=== PATIENT | male | born 1980 | race Caucasian/White ===

== ENCOUNTER 2020-02-28 23:28 | Observation (INO) | payer OTHER, SELFPAY ==
[2020-02-29] VITALS (19 sets, daily range): BP systolic 104–144; BP diastolic 50–88; PULSE 67–100; RESP 9–18; TEMP 36.5–37.4; O2SAT 95–100; BMI 26.4; BMI 25.2
--- NOTE | 2020-02-29 00:09 | ED_ITS ---
HPI - Abdominal Pain General Chief Complaint: Urogenital-Male Stated Complaint: Hernia left side - states it is out, pain Time Seen by Provider: 02/28/20 23:32 Source: patient Mode of arrival: Ambulatory Limitations: no limitations History of Present Illness HPI narrative: 39-year-old male smoker with history of known left inguinal hernia presents with severe left groin pain and significant swelling in scrotum. He denies any injury. He has had no fever chills and is nauseated but denies vomiting. He states it is never been quite this swollen he can usually get it back in, he states it has been out about 15-16 hours. He still passing gas but developing increasing pain across his lower abdomen. He last ate at 7:00 p.m. tonight. He denies any previous abdominal surgeries. He was diagnosed with inguinal hernia 2 years ago while in [place]. He has had no runny nose, sore throat, cough or shortness of breath and no known exposure to persons with COVID-19 MD complaint: abdominal pain Onset (ago): hour(s) Pain Consistency: constant Location: LLQ and suprapubic Severity: severe Quality: cramping and aching Radiation: none Relieving factors: rest Exacerbating factors: movement Associated symptoms: nausea Related Data Home Medications Medication Instructions Recorded Confirmed No Known Home Medications 02/29/20 02/29/20 Allergies Allergy/AdvReac Type Severity Reaction Status Date / Time No Known Drug Allergies Allergy Verified 02/29/20 00:12 Review of Systems Constitutional Constitutional: Denies chills, Denies fatigue, Denies fever(s), Denies frequent falls, Denies lethargy and Denies weakness Eyes Eyes: Denies change in vision, Denies eye discharge, Denies irritation and Denies loss of vision ENT Ears, Nose, Mouth, and Throat: Denies change in voice, Denies dizziness, Denies neck pain, Denies sore throat and Denies throat swelling Cardiovascular Cardiovascular: Denies chest pain, Denies irregular heart rhythm, Denies lightheadedness, Denies palpitations, Denies dyspnea, Denies dyspnea on exertion and Denies orthopnea Respiratory Respiratory: Denies cough, Denies dyspnea, Denies dyspnea on exertion and Denies wheezing Gastrointestinal Gastrointestinal: Denies abdominal pain, Denies change in bowel habits, Denies d iarrhea, Denies nausea and Denies vomiting Genitourinary Genitourinary: Denies hematuria, Denies flank pain, Denies urinary incontinence and Denies urinary urgency Musculoskeletal Musculoskeletal: Denies back pain, Denies muscle weakness, Denies neck pain, Denies numbness and Denies tingling Integumentary/Breasts Skin/Breast: Denies pruritus, Denies erythema, Denies rash and Denies wounds Neurologic Neurologic: Denies behavioral changes, Denies confusion, Denies dizziness, Denies frequent falls, Denies loss of vision, Denies numbness, Denies tingling and Denies weakness Psychiatric Psychiatric: Denies anxiety, Denies behavioral changes, Denies confusion, Denies depression, Denies homicidal ideation and Denies suicidal ideation Endocrine Endocrine: Denies fatigue, Denies flushing and Denies palpitations Hematologic/Lymphatic Hematologic/Lymphatic: Denies easy bruising Allergic/Immunologic Allergic/Immunologic: Denies urticaria, Denies throat swelling and Denies wheezing Patient History Surgical History Hx of tonsillectomy (Acute) Social History Smoking Status: Current every day smoker Exam Narrative Exam Narrative: GENERAL: [39] year old patient appears stated age. Well- nourished, well-developed patient, in moderate distress, obviously in pain and uncomfortable HEAD: Atraumatic. Normocephalic. EYES: Pupils equal round and reactive. Extraocular motions intact. No scleral icterus. No injection or drainage. ENT: Nose without bleeding, purulent drainage. Throat without erythema, tonsillar hypertrophy or exudate. Airway patent. NECK: Trachea midline. Non tender CARDIOVASCULAR: Regular rate and rhythm without murmurs, gallops, or rubs. RESPIRATORY: Clear to auscultation. Breath sounds equal bilaterally. No wheezes, rales, or rhonchi. GASTROINTESTINAL: Abdomen soft, non-tender, nondistended. : Large tender mass in L inguinal region extending into scrotum consistent with inguinal hernia. Non-reduceable. No erythema, or warmth. EXTREMITIES: No edema or joint tenderness. BACK: Nontender without deformity or crepitance. No flank tenderness. NEURO: AOx3. SKIN: No rash or erythema of visible areas Initial Vital Signs Initial Vital Signs: Vital Signs Temperature 99.3 F 02/29/20 00:09 Pulse Rate 90 02/29/20 00:09 Respiratory Rate 18 02/29/20 00:09 Blood Pressure 144/88 H 02/29/20 00:09 Pulse Oximetry 100 02/29/20 00:09 Course Course Course Narrative: patient given Versed 2mg IV and attempt to reduce hernia is unsuccesful. Patient placed in trendelenburg, tolerated well. Call to adjuster [facility] (Dr. Contreras) whom will see patient at bedside and requests surgical crew called in. Orders Ordered: ED Orders 02/29/20 00:35 Basic Metabolic Panel Stat Complete Blood Count AUTO DIFF Stat Lactate (Lactic Acid) Stat 02/29/20 00:57 XR acute abdomen series Stat Fentanyl (Sublimaze) 0 mcg IV Q5M PRN PRN Reason: Pain, Moderate (4-6) Hydromorphone HCl (Dilaudid) 0 mg IV Q5M PRN PRN Reason: Pain, Severe (7-10) Sodium Chloride (Normal Saline 0.9%) 1,000 mls @ 125 mls/hr IV CONT JERICA Last Admin: 02/29/20 01:56 Dose: 125 mls/hr Documented by: ANDREW Lactated Ringer's (Lactated Ringers) 1,000 mls @ 42 mls/hr IV CONT JERICA Last Admin: 02/29/20 02:26 Dose: 42 mls/hr Documented by: LUZMARIA Metoclopramide HCl (Reglan) 10 mg IV NOW PRN PRN Reason: Nausea And Vomiting Ondansetron HCl (Zofran) 4 mg IV NOW PRN PRN Reason: Nausea And Vomiting Oxycodone/Acetaminophen (Percocet 5/325) 1 tab PO PACUNOW PRN PRN Reason: Mild or Moderate Pain Discontinued Medications Bupivacaine HCl (Sensorcaine 0.25% (Pf)) 30 ml INJ NOW ONE Stop: 02/29/20 02:47 Last Admin: 02/29/20 02:46 Dose: 30 ml Documented by: MARTIN Sodium Chloride (Normal Saline 0.9%) 1,000 mls @ 1,000 mls/hr IV BOLUS ONE Stop: 02/29/20 01:13 Last Infusion: 02/29/20 01:56 Dose: 0 mls/hr Documented by: Admin: 02/29/20 00:38 Dose: 1,000 mls/hr Documented by: ANDREW Piperacillin/Tazobactam/Dextrose (Zosyn) 3.375 gm in 50 mls @ 100 mls/hr IV NOW ONE Stop: 02/29/20 02:18 Last Infusion: 02/29/20 02:25 Dose: 0 mls/hr Documented by: Admin: 02/29/20 01:56 Dose: 100 mls/hr Documented by: ANDREW Midazolam HCl (Versed) 1 mg IV NOW ONE Stop: 02/29/20 00:21 Last Admin: 02/29/20 00:41 Dose: 1 mg Documented by: ANDREW Midazolam HCl (Versed) 1 mg IV NOW ONE Stop: 02/29/20 01:00 Vital Signs Vital signs: Vital Signs - 8 hr 02/29/20 00:09 02/29/20 01:02 Temperature 99.3 F Pulse Rate 90 96 H Respiratory Rate 18 16 Blood Pressure 144/88 H Blood Pressure [Left Arm] 131/83 Pulse Oximetry 100 98 MDM - Abdominal Pain Lab Data Result diagrams: 02/29/20 00:35 02/29/20 00:35 Labs: Lab Results 02/29/20 02/29/20 02/29/20 Range/Units 00:35 00:35 00:35 WBC 7.3 (4.5-11.0) X10^3/uL RBC 4.64 (4.5-5.9) X10^6/uL Hgb 13.4 L (13.5-17.5) g/dL Hct 38.5 L (41-53) % MCV 82.9 (80-100) fL MCH 29.0 (26-34) PG MCHC 34.9 (30-36) % RDW 12.8 (11.6-14.8) % Plt Count 198 (150-400) X10^3/uL Neut % (Auto) 63.0 (50-75) % Lymph % (Auto) 19.2 L (25-40) % [place] % (Auto) 14.4 H (3-14) % Eos % (Auto) 2.9 (2-4) % Baso % (Auto) 0.5 (0-2) % Neut # (Auto) 4600 (3391-6291) /uL Lymph # (Auto) 1400 (4834-6569) /uL [place] # (Auto) 1100 H (0-900) /uL Eos # (Auto) 200 (0-450) /uL Baso # (Auto) 0 (0-100) /uL Sodium 137 (137-145) mmol/L Potassium 3.4 (3.4-5.1) mmol/L Chloride 102 (98-107) mmol/L Carbon Dioxide 29 (22-32) mmol/L BUN 23 H (9-20) mg/dL Creatinine 1.14 (0.66-1.25) mg/dL Estimated GFR > 60.0 (>60) mL/min BUN/Creatinine Ratio 20.2 (6-22) Glucose 98 (70-100) mg/dL Lactate 0.8 (0.7-2.1) mmol/L Calcium 9.2 (8.4-10.2) mg/dL Discharge Plan Departure Patient Disposition: Admitted as Observation Clinical Impression: Incarcerated hernia Admit Date/Time: 02/29/20 01:24 Admit Provider: Sterling Contreras
[2020-02-29] MEDS: SODIUM CHLORIDE 0.9% 1,000 ML 1000 ML IV (00:38)
[2020-02-29] MEDS: MIDAZOLAM 2 MG/2 ML VIAL 1 MG IV (00:41)
[2020-02-29 00:51] LABS: Add Manual Diff / Slide Review NO; Basophils Absolute Auto 0 /uL (0-100); Basophils Percent Auto 0.5 % (0-2); Eosinophils Absolute Auto 200 /uL (0-450); Eosinophils Percent Auto 2.9 % (2-4); Hematocrit 38.5 % (41-53); Hemoglobin 13.4 g/dL (13.5-17.5); Lymphocytes Absolute Auto 1400 /uL (1100-4500); Lymphocytes Percent Auto 19.2 % (25-40); Mean Corpuscular HGB Conc 34.9 % (30-36); Mean Corpuscular Volume 82.9 fL (80-100); Monocytes Absolute Auto 1100 /uL (0-900); Monocytes Percent Auto 14.4 % (3-14); Neutrophils Absolute Auto 4600 /uL (1500-7000); Platelet Count 198 X10^3/uL (150-400); Red Blood Cell Count 4.64 X10^6/uL (4.5-5.9); Red Cell Distribution Width 12.8 % (11.6-14.8); White Blood Cell Count 7.3 X10^3/uL (4.5-11.0)
[2020-02-29 00:54] LABS: Lactate (Lactic Acid) 0.8 mmol/L (0.7-2.1)
[2020-02-29 00:55] LABS: BUN Creatinine Ratio 20.2 (6-22); Blood Urea Nitrogen 23 mg/dL (9-20); Calcium 9.2 mg/dL (8.4-10.2); Carbon Dioxide 29 mmol/L (22-32); Chloride 102 mmol/L (98-107); Estimated Glomerular Filt Rate > 60.0 mL/min (>60); Glucose 98 mg/dL (70-100); HEMOLYSIS < 15 (0-50); Potassium 3.4 mmol/L (3.4-5.1); Sodium 137 mmol/L (137-145)
--- NOTE | 2020-02-29 00:57 | DI.RAD.S_ITS ---
PROCEDURE: XR ACUTE ABDOMEN SERIES INDICATIONS: severe pain,hernia, possible obstruction TECHNIQUE: One view chest and two views of the abdomen were acquired. COMPARISON: None. FINDINGS: Surgical changes and devices: None. Chest: Lungs are clear. Heart size is normal. No pleural effusions. No pneumoperitoneum. Abdomen: Bowel gas pattern is normal. No suspicious calcifications. Visualized solid organ contours appear normal. Bones: No suspicious bony lesions. IMPRESSION: Nonspecific bowel gas pattern. Bowel obstruction is not found. Depending on the clinical status followup by CT scan of the abdomen/pelvis with contrast may be warranted. Dictated by: Art Renner M.D. on 02/29/2020 at 8:25 Approved by: Art Renner M.D. on 02/29/2020 at 8:25
--- NOTE | 2020-02-29 01:03 | PC.NURSE ---
Total 2 mg versed given IV per order from Dr Awad for attempted bedside reduction of L inguinal hernia. Pt tolerated well-- reduction was not successful.
[2020-02-29] MEDS: SODIUM CHLORIDE 0.9% 1,000 ML 125 ML IV (01:56)
[2020-02-29] MEDS: PIPERACILLIN-TAZO 3.375 GM/50 ML FROZ.PIGGY IV (01:56)
--- NOTE | 2020-02-29 01:56 | P.HP_ITS ---
History of Present Illness History of Present Illness Date Patient Seen: 02/29/20 Chief complaint: Hernia left side - states it is out, pain Narrative: 39-year-old male with a chronic left groin hernia since teenage years became acutely incarcerated today. It is normally reducible became stuck swollen and increasingly painful for the past 15 hours. Nausea no vomiting or fever. In the emergency room reduction was unsuccessful despite procedural sedation. No prior abdominal surgery. Previous left hand unspecified surgery and tonsillectomy. Current smoker of no anticoagulation. Patient History Surgical History Hx of tonsillectomy (Acute) Family & Social History Safety & Behavioral: Feels Safe in Current Yes Environment Tobacco & Substance use: Smoking Status Current every day smoker alcohol intake frequency 0-2 drinks per day Substance Use Type does not use Meds Home Medications and Allergies Home Medications Medication Instructions Recorded Confirmed Type No Known Home Medications 02/29/20 02/29/20 History Allergies Allergy/AdvReac Type Severity Reaction Status Date / Time No Known Drug Allergies Allergy Verified 02/29/20 00:12 Review of Systems Review of Systems Narrative: A 10 point review of systems is negative except as noted in the HPI Exam Vital Signs (past 8 hours): - 02/29/20 00:09 02/29/20 01:02 Temperature 99.3 F Pulse Rate 90 96 H Respiratory Rate 18 16 Blood Pressure 144/88 H Blood Pressure [Left Arm] 131/83 Pulse Oximetry 100 98 Oxygen Delivery Method Room Air Narrative Exam Narrative: General-no acute distress, well nourished HEENT-moist mucous membranes, no scleral icterus Neck-supple, no lymphadenopathy Chest- non labored respirations, clear to auscultation bilaterally Cardiac-regular rate no peripheral edema Abdomen incarcerated left inguinal hernia extending into scrotum. Extremely uncomfortable unable to reduce. Extremities-warm, well perfused Neurological-alert and oriented, no focal deficits Objective Labs Result Diagrams: 02/29/20 00:35 02/29/20 00:35 Labs: Laboratory Results - last 24 hr 02/29/20 02/29/20 02/29/20 00:35 00:35 00:35 WBC 7.3 RBC 4.64 Hgb 13.4 L Hct 38.5 L MCV 82.9 MCH 29.0 MCHC 34.9 RDW 12.8 Plt Count 198 Neut % (Auto) 63.0 Lymph % (Auto) 19.2 L [place] % (Auto) 14.4 H Eos % (Auto) 2.9 Baso % (Auto) 0.5 Neut # (Auto) 4600 Lymph # (Auto) 1400 [place] # (Auto) 1100 H Eos # (Auto) 200 Baso # (Auto) 0 Sodium 137 Potassium 3.4 Chloride 102 Carbon Dioxide 29 BUN 23 H Creatinine 1.14 Estimated GFR > 60.0 BUN/Creatinine Ratio 20.2 Glucose 98 Lactate 0.8 Calcium 9.2 Assessment & Plan Assessment and plan (1) Inguinal hernia: Current visit: Yes Status: Acute Assessment & Plan narrative: 39-year-old man with an incarcerated left inguinal hernia. Unable to reduce the hernia despite procedural sedation. I told him that he will need an open left inguinal hernia repair. I told him that intraoperatively I would determine the viability of his intestine and that he may require a laparotomy as well as a possible bowel resection. Additionally I told him that depending on whether he requires bowel resection will determine whether not a mesh repair can be performed. We discussed the risks of the operation including bleeding infection hernia recurrence. chronic pain. anastomotic leak. His questions have been answered and he is in agreement with this plan.
[2020-02-29] MEDS: LACTATED RINGERS 1,000 ML 42 ML IV ×2 (02:26→04:34)
[2020-02-29] MEDS: BUPIVACAINE 0.25% (PF) VIAL 30 ML INJ (02:46)
--- NOTE | 2020-02-29 05:00 | P.OP_ITS ---
Operative Date/Time/Diagnoses Date of procedure: 02/29/20 Time of procedure: 05:01 Pre-op diagnosis: Incarcerated left inguinal hernia Post-op diagnosis: same Procedure & Clinicians Procedure: Open left inguinal hernia repair with mesh Same procedure as scheduled: Yes Indications: 39-year-old male with a chronic left inguinal hernia for the past 20 years presents with acute incarceration. Surgeon: Sterling Contreras Early Childhood: [employer] Anesthesia Type: General Operative Notes Findings: Very large direct defect. Hernia sac containing infarcted omentum. Hydrocele Specimen(s): other (Hernia sac) Estimated Blood Loss (mL): 50 Procedure in detail: Patient brought to the operating room placed supine on the table. bilateral lower extremity compression devices were applied. He received 3.375 g of Zosyn prior to skin incision. General anesthesia was induced and he was intubated with an endotracheal tube. Time-out was performed ensure the correct patient procedure necessary equipment within the operating room. He was prepped and draped in sterile fashion. The left pubic tubercle and the anterior superior iliac spine were identified an a incision was made over the crease of the groin. The subcutaneous tissues were divided. The anatomy was quite distorted by the very large hernia extending through the inguinal canal down into the scrotum. The external oblique aponeurosis was identified and then was divided along the direction of its fibers towards the pubic tubercle. There was a very large hernia within the inguinal canal extending all the way down into the scrotum. The hernia was carefully reduced out of the scrotum. The the hernia content consisted of 1 large chronically incarcerated mass containing the testicle its blood supply large hydrocele and the hernia sac. The contents were carefully dissected out and the vas deferens and the testicular blood supply and testicle were isolated and protected. The hernia sac was very thick and chronic in its appearance. It was opened using [place] and within it with there was infarcted omentum. The omentum was transected and passed off the field as specimen. The omentum was then ligated using silk suture and returned to the abdomen. The hernia sac was opened all the way to the internal ring. The hernia sac was then cut back to normal soft pliable tissue and then it was closed in a running fashion using 3 0 Vicryl suture. There was no intestinal contents within the hernia sac. I selected a piece of Prolene mesh large which was cut to shape. Interrupted Prolene suture was used to then close the floor defect by bringing the transversalis to the shelving edge of the inguinal ligament. The ilioinguinal nerve was going to be entrapped by the mesh and I was unable to but it in a safe position and it was sharply divided with scissors and then buried in the muscle using Vicryl suture. Next the mesh was then placed into the inguinal canal were was anchored to the pubic tubercle using Prolene suture. Then the inferior edge was fashion to the inguinal ligament in a running fashion. The superior edge of the mesh was then anchored using interrupted some Prolene sutures to the conjoined tendon. Tails were created in the mesh which were wrapped around the cord in a non restrictive way such that the cord could move freely. The tails were then tucked up under the external oblique. The testicle and the associated cord structures were then returned to the scrotum. The external oblique aponeurosis was then closed in a running fashion using Vicryl suture. The subcutaneous tissue was then reapproximated using 3 0 Vicryl the skin closed with 4 Monocryl in a running fashion. The skin was sealed with Dermabond. Ensure that both testicles were within the scrotum at the conclusion of the case. Complications: none Post-operative Condition: stable Disposition: observation
[2020-02-29] MEDS: fentaNYL 100 MCG/2 ML INJ IV ×2 (05:06→05:12)
[2020-02-29] MEDS: HYDROMORPHONE 2 MG INJ IV ×4 (05:07→05:32)
[2020-02-29] MEDS: ONDANSETRON 4 MG/2 ML INJ IV (05:18)
--- NOTE | 2020-02-29 06:11 | SUR.PHASEI ---
PT transferred to acute care floor in stable condition, vss. Bedside report given to JEANA Hooks upon arrival to room. Transferred care of pt to JEANA Hooks at that time.
[2020-02-29] MEDS: SODIUM CHLORIDE 0.9% 1,000 ML 100 ML IV (06:38)
[2020-02-29] MEDS: ACETAMINOPHEN 325 MG TABLET 650 MG PO (06:44)
[2020-02-29] MEDS: KETOROLAC 30 MG/ML VIAL IV (06:45)
--- NOTE | 2020-02-29 07:20 | PC.ADMIT ---
Patient admitted to room 211 from PACU following left inguinal hernia repair. Is very drowsy and speech is slurred but is responding to most questions asked. Breath sounds CTA with sat of 98% on oxygen at 2L/min; using continuous pulse oximetry. HRR. Denies nausea. BT present but not passing flatus. Abdomen is mildly distended and tender to touch. Incision left inguinal is dermabonded and without redness/drainage. Scrotum is very swollen and tender. Attempted to void per urinal but unable to do so at this time. Able to turn himself in bed. Has small abrasions on each ear lobe. Scattered scratches on bilateral LE. Wearing bilateral calf SCD's. States pain is 5/10; medicated with scheduled Toradol and Tylenol. Taking water without difficulty. Had ice pack to scrotum on admission but declines at further at this time. Is on contact/droplet/aerosolized droplet precautions as COVID-19 test done in ER and not yet resulted. Fall risk score is moderate; bed alarm is activated due to patient's drowsiness. [address] Admission Note: The patient,Brian Herrera,39 y/o, was given written information regarding hospital policies, unit procedures and contact persons. Patient's smoking status: Current every day smoker. Vital Signs - 8 hr 02/29/20 00:09 02/29/20 01:02 02/29/20 02:21 Temperature 99.3 F 99.2 F Pulse Rate 90 96 H 84 Respiratory Rate 18 16 16 Blood Pressure 144/88 H 129/80 Blood Pressure [Left Arm] 131/83 Pulse Oximetry 100 98 100 02/29/20 04:54 02/29/20 04:59 02/29/20 05:04 Temperature 98.9 F Pulse Rate 100 H 95 H 91 H Respiratory Rate 14 14 16 Blood Pressure 120/67 112/65 112/68 Blood Pressure [Left Arm] Pulse Oximetry 95 95 95 02/29/20 05:09 02/29/20 05:14 02/29/20 05:25 Temperature Pulse Rate 92 H 93 H 80 Respiratory Rate 12 9 L 11 L Blood Pressure 114/61 104/61 105/64 Blood Pressure [Left Arm] Pulse Oximetry 98 98 97 02/29/20 05:38 02/29/20 05:53 02/29/20 06:00 Temperature 98.1 F Pulse Rate 86 77 82 Respiratory Rate 12 12 13 Blood Pressure 107/60 108/63 116/50 L Blood Pressure [Left Arm] Pulse Oximetry 96 96 96 02/29/20 06:09 02/29/20 06:35 02/29/20 06:36 Temperature 98.1 F 98.4 F Pulse Rate 81 73 Respiratory Rate 14 16 Blood Pressure 142/64 H 106/69 Blood Pressure [Left Arm] Pulse Oximetry 99 100 100 02/29/20 07:15 Temperature 97.7 F Pulse Rate 67 Respiratory Rate 16 Blood Pressure 121/63 Blood Pressure [Left Arm] Pulse Oximetry 100
[2020-02-29] MEDS: OXYCODONE IR 5 MG TABLET PO (07:59)
--- NOTE | 2020-02-29 08:43 | CM.DANOTE ---
Addendum entered by Suzi Anderson LPN 02/29/20 08:57: of note: ER sent in testing for COVID-19 and pt is on precautions for same. Original Note: Discharge Planning/Care Management DCP: assessment: case received, EMR reviewed and spoke by phone with pt's emergency contact: significant other Karla Arrdeondo: [phone]. Introduced self and role. Pt is a 39 year old male who admitted early this morning to care of Dr. Jessica Contreras/[facility]. He was taken to surgery for repair of incarcerated hernia: open L hernia repair with mesh has been completed and pt has moved from PACU to room 211 about an hour ago. Payer: private: pt has been given info by Admission Counselor re [employer] and [employer]. 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 insurance plan. Karla confirms that pt does live by himself but she lives close by and his mother Kelly Feliciano lives in the RV next to him. All reside in [place]. 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 She states that Dr. Contreras called her after the surgery and told her that pt may be able to leave for home later this afternoon if he is medically stable for same. She will be standing by to pick him up. CM/dcp team will follow prn CM Discharge Assessment Start: 02/29/20 08:34 Freq: Status: Active Protocol: Document 02/29/20 08:35 ITV (Rec: 02/29/20 08:43 ITV [id number]) Discharge Planning Assessment Advance Directives? No History Provided By Medical Record Prior Living Arrangements RV Household Members none Independent with ADL's Yes Is patient alert and oriented? Yes Review Status In Process
--- NOTE | 2020-02-29 09:44 | PM.DS.1 ---
History of Present Illness History of Present Illness Chief complaint: Hernia left side - states it is out, pain Narrative: 39-year-old male with a chronic left groin hernia since teenage years became acutely incarcerated today. It is normally reducible became stuck swollen and increasingly painful for the past 15 hours. Nausea no vomiting or fever. In the emergency room reduction was unsuccessful despite procedural sedation. No prior abdominal surgery. Previous left hand unspecified surgery and tonsillectomy. Current smoker of no anticoagulation. Discharge Providers Provider Date of admission: 02/29/20 01:24 Discharge Date: 02/29/20 Consults: 02/29/20 02:26 Consult to Respiratory Therapy Evaluate & Treat Comment: Physician Instructions: Evaluate and treat Discharge provider: Sterling Contreras MD Summary Hospital Course Discharge Diagnosis: Incarcerated left inguinal hernia Hospital Course: Patient underwent an open left inguinal hernia repair 02/28. Intestine was viable he stayed several hours postoperatively for observation largely for pain control. On examination this morning he is feeling well his pain is adequately controlled with oxycodone is tolerating a diet and he is ambulatory urinating normally. At this time he is stable for discharge home. Exam Vital Signs (past 8 hours): - 02/29/20 02:21 02/29/20 04:54 02/29/20 04:59 Temperature 99.2 F 98.9 F Pulse Rate 84 100 H 95 H Respiratory Rate 16 14 14 Blood Pressure 129/80 120/67 112/65 Pulse Oximetry 100 95 95 02/29/20 05:04 02/29/20 05:09 02/29/20 05:14 Temperature Pulse Rate 91 H 92 H 93 H Respiratory Rate 16 12 9 L Blood Pressure 112/68 114/61 104/61 Pulse Oximetry 95 98 98 02/29/20 05:25 02/29/20 05:38 02/29/20 05:53 Temperature 98.1 F Pulse Rate 80 86 77 Respiratory Rate 11 L 12 12 Blood Pressure 105/64 107/60 108/63 Pulse Oximetry 97 96 96 02/29/20 06:00 02/29/20 06:09 02/29/20 06:35 Temperature 98.1 F 98.4 F Pulse Rate 82 81 73 Respiratory Rate 13 14 16 Blood Pressure 116/50 L 142/64 H 106/69 Pulse Oximetry 96 99 100 02/29/20 06:36 02/29/20 07:15 02/29/20 07:27 Temperature 97.7 F Pulse Rate 67 Respiratory Rate 16 Blood Pressure 121/63 Pulse Oximetry 100 100 95 02/29/20 07:30 02/29/20 08:15 Temperature 97.8 F Pulse Rate 86 Respiratory Rate 16 Blood Pressure 118/76 Pulse Oximetry 99 98 Oxygen Delivery Method Room Air Oxygen Flow Rate 0 Narrative Exam Narrative: General adult male alert oriented no acute distress Abdomen left groin incision clean dry intact. Expected postoperative swelling but no hernia in the left groin. Objective Labs Result Diagrams: 02/29/20 00:35 02/29/20 00:35 Labs: Laboratory Results - last 24 hr 02/29/20 02/29/20 02/29/20 00:35 00:35 00:35 WBC 7.3 RBC 4.64 Hgb 13.4 L Hct 38.5 L MCV 82.9 MCH 29.0 MCHC 34.9 RDW 12.8 Plt Count 198 Neut % (Auto) 63.0 Lymph % (Auto) 19.2 L [place] % (Auto) 14.4 H Eos % (Auto) 2.9 Baso % (Auto) 0.5 Neut # (Auto) 4600 Lymph # (Auto) 1400 [place] # (Auto) 1100 H Eos # (Auto) 200 Baso # (Auto) 0 Sodium 137 Potassium 3.4 Chloride 102 Carbon Dioxide 29 BUN 23 H Creatinine 1.14 Estimated GFR > 60.0 BUN/Creatinine Ratio 20.2 Glucose 98 Lactate 0.8 Calcium 9.2 Discharge Plan Discharge Plan Patient Disposition: Home Discharge orders & Medications Prescriptions: New ibuprofen 200 mg tablet 800 mg PO Q6H PRN (Reason: pain) Qty: 90 RF: 0 docusate sodium [Colace] 100 mg capsule 100 mg PO BID Qty: 40 RF: 0 oxycodone 5 mg tablet 5 mg PO Q6H PRN (Reason: pain) Qty: 50 RF: 0 acetaminophen [Tylenol] 325 mg capsule 650 mg PO QID PRN (Reason: pain) Qty: 60 RF: 0 Follow up/Referrals: Sterling Contreras MD [Physician] - Diet/Activity/Treatments Diet: Regular Activity: No lifting >20 lbs x 6 weeks. Walking only for exercise for 4 weeks. [address] while taking narcotics. Will need to be light duty for work until 6 weeks from now. Skin/Wound/Dressing Care Report to your healthcare provider any signs of infection, such as:: chills, fever, increased pain, unusual drainage and unusual redness Visit Report/Discharge Packet Instructions: DI for Hernia Repair Discharge Data Attending Provider: Sterling Contreras Admit Date/Time: 02/29/20 01:24
--- NOTE | 2020-02-29 11:30 | PC.NURSE ---
Shift summary: A&O X3. Incision to groin well-approximated with skin glue and without erythema, drainage or bleeding. Scrotum was swollen, but improving per patient report. BT+, flatus+. Voided 600 ml clear yellow urine without difficulty. Tolerating PO's on general diet. Pain well-managed with Tylenol and Oxycodone. Discharge home (left approx 1050): IV dc'd intact. Reviewed all d/c instructions and meds thoroughly. Given script for Oxycodone, instructed to warehouse order picker other 3 OTC meds at the pharmacy. Instructed to call MD office this afternoon or tomorrow to schedule f/u with Dr Contreras. Reviewed s/sx that would warrant at call to the MD or return trip to hospital. All personal belongings collected and sent with patient at discharge. Patient verbalized understanding of d/c info and stated no further questions. Wheeled out to private vehicle by nursing staff.
[2020-02-29 17:39] LABS: COVID19 Sendout Not Detected (Not Detect)
== END 2020-02-29 11:35 | disposition home or self-care (01) ==
LOC: ED 23:47 → AC 02-29 01:25
PROVIDERS: Admitting Provider Surgery; Emergency Provider Emergency Medicine; Visit Provider Surgery
PROC: (CPT 49507; principal; 2020-02-29 02:30)
DX: K40.30 Unilateral inguinal hernia, with obstruction, without gangrene, not specified as recurrent (principal); R10.32 Left lower quadrant pain; Z11.59 Encounter for screening for other viral diseases; F17.210 Nicotine dependence, cigarettes, uncomplicated; N43.3 Hydrocele, unspecified
CPT/HCPCS: 49507; 36415; 74022; 80048; 83605; 85025; 87635; 96361; 96365; 96375; 99219; 99284; C1781; G0378; J0330; J1100; J1170; J1885; J2250; J2405; J2543; J2704; J3010

== ENCOUNTER 2020-03-08 02:26 | Emergency (ER) | payer SELFPAY ==
[2020-02-29 06:24] VITALS: BMI 25.2
--- NOTE | 2020-03-08 02:31 | DI.RAD.S_ITS ---
PROCEDURE: XR ACUTE ABDOMEN SERIES INDICATIONS: Abdominal pain, no BM, recent surgery TECHNIQUE: One view chest and two views of the abdomen were acquired. COMPARISON: [facility], , XR ACUTE ABDOMEN SERIES, 02/29/2020, 1:27. FINDINGS: Surgical changes and devices: None. Chest: Lungs are clear. Heart size is normal. No pleural effusions. No pneumoperitoneum. Abdomen: Bowel gas pattern is normal. No specific transition point is seen No suspicious calcifications. Visualized solid organ contours appear normal. Moderate stool is present. Bones: Multilevel degenerative endplate sclerosis and spurring. Diffuse facet arthropathy. Dextro scoliosis of the lower lumbar spine.. IMPRESSION: No bowel obstruction Moderate stool Dictated by: Luciano Morales M.D. on 03/08/2020 at 9:19 Approved by: Luciano Morales M.D. on 03/08/2020 at 9:35
[2020-03-08 02:36] VITALS: BP 162/102; PULSE 71; RESP 15; TEMP 36.4; O2SAT 100; BMI 25.7
--- NOTE | 2020-03-08 02:56 | DI.CT.S_ITS ---
PROCEDURE: CT ABDOMEN PELVIS W CON INDICATIONS: severe pain, recent L inguinal hernia repair, no BM, or flat TECHNIQUE: After the administration of intravenous contrast, 5 mm thick sections acquired from the diaphragm to the symphysis. 5 mm coronal and sagittal reformats were acquired. For radiation dose reduction, the following was used: automated exposure control, adjustment of mA and/or kV according to patient size. COMPARISON: [facility], CR, XR ACUTE ABDOMEN SERIES, 03/08/2020, 2:25. FINDINGS: Image quality: Excellent. ABDOMEN: Lung bases: Lung bases are clear. Heart size is normal. Solid organs: 5 mm focus of hyperenhancement present within segment 8, technically indeterminate Gallbladder is negative. Biliary system is non dilated. Pancreas enhances normally. Spleen is normal in size and enhancement. No adrenal nodules. Kidneys demonstrate normal size and enhancement, without hydronephrosis. Peritoneum and bowel: No bowel obstruction identified No free fluid or air. Moderate to large amount of stool. Gas and stool present within the rectal vault. Nodes and vessels: No retroperitoneal or mesenteric adenopathy by size criteria. Aorta and inferior vena cava are normal in size. Miscellaneous: No ventral hernias. PELVIS: Genitourinary: Bladder wall thickness is normal. Miscellaneous: Within the left inguinal region, there are scattered subcutaneous gas bubbles and ill-defined fluid and surrounding inflammatory stranding. One focus of fluid measures 2.2 x 1.5 cm however there additional infiltrative fluid and edema. Left hydrocele noted. Multiple vessel enhancement is seen. No definitive active extravasation is seen. No definite intrapelvic extension seen. Bones: No suspicious bony lesions. No vertebral body compression fractures. Lateral curvature of the spine. Multilevel degenerative endplate sclerosis and spurring. Diffuse facet arthropathy. IMPRESSION: Large left inguinal presumed postoperative seroma and potentially hematoma. Superimposed infection/abscess cannot be excluded. Left hydrocele Incidental subcentimeter focus of hyperenhancement within the right lobe of the liver, potentially small flash filling hemangioma however technically indeterminate. This could be followed up with ultrasound or CT to exclude early malignant or metastatic processes Dictated by: Luciano Morales M.D. on 03/08/2020 at 8:12 Approved by: Luciano Morales M.D. on 03/08/2020 at 8:23
[2020-03-08] MEDS: SODIUM CHLORIDE 0.9% 1,000 ML 1000 ML IV (02:58)
[2020-03-08 02:59] LABS: Add Manual Diff / Slide Review NO; Basophils Absolute Auto 0 /uL (0-100); Basophils Percent Auto 0.8 % (0-2); Eosinophils Absolute Auto 200 /uL (0-450); Eosinophils Percent Auto 3.2 % (2-4); Hematocrit 39.6 % (41-53); Hemoglobin 13.6 g/dL (13.5-17.5); Lymphocytes Absolute Auto 1400 /uL (1100-4500); Lymphocytes Percent Auto 25.4 % (25-40); Mean Corpuscular HGB Conc 34.5 % (30-36); Mean Corpuscular Hemoglobin 28.1 PG (26-34); Mean Corpuscular Volume 81.4 fL (80-100); Monocytes Absolute Auto 700 /uL (0-900); Monocytes Percent Auto 12.1 % (3-14); Neutrophils Absolute Auto 3300 /uL (1500-7000); Neutrophils Percent Auto 58.5 % (50-75); Platelet Count 322 X10^3/uL (150-400); Red Blood Cell Count 4.86 X10^6/uL (4.5-5.9); Red Cell Distribution Width 12.5 % (11.6-14.8); White Blood Cell Count 5.7 X10^3/uL (4.5-11.0)
[2020-03-08 03:11] LABS: Alanine Aminotransferase 15 IU/L (<50); Albumin 4.6 g/dL (3.5-5.0); Albumin Globulin Ratio 1.2 (1.0-2.8); Alkaline Phosphatase 53 U/L (38-126); Aspartate Aminotransferase 26 IU/L (17-59); BUN Creatinine Ratio 20.4 (6-22); Bilirubin Total 0.7 mg/dL (0.2-1.3); Blood Urea Nitrogen 22 mg/dL (9-20); Calcium 9.9 mg/dL (8.4-10.2); Carbon Dioxide 30 mmol/L (22-32); Chloride 103 mmol/L (98-107); Estimated Glomerular Filt Rate > 60.0 mL/min (>60); Glucose 110 mg/dL (70-100); HEMOLYSIS 25 (0-50); Lactate (Lactic Acid) 0.7 mmol/L (0.7-2.1); Potassium 4.1 mmol/L (3.4-5.1); Sodium 142 mmol/L (137-145); Total Protein 8.6 g/dL (6.3-8.2)
--- NOTE | 2020-03-08 03:31 | ED_ITS ---
HPI - Abdominal Pain General Chief Complaint: Abdominal Pain Stated Complaint: unable to have bowel movement post sgy x 1 wk Time Seen by Provider: 03/08/20 02:28 Source: patient Mode of arrival: Ambulatory Limitations: no limitations History of Present Illness HPI narrative: 39M daily smoker with history of recent surgical repair of large L inguinal hernia presents with chief complaint of no BM x1 week and worsening pain and difficulty with flatus over the past few days. He was in the OR on 02/28 and DC'd that day. He continues to take pain meds and has also been taking stool softeners daily. He denies fever or chills. He is nauseated but denies vomiting. He admits to increasing pain and swelling in his groin and scrotum for the past few days. He last ate at about 6pm. MD complaint: abdominal pain Onset (ago): day(s) Pain Consistency: constant Location: LLQ Severity: moderate Quality: cramping, aching and fullness Relieving factors: rest Exacerbating factors: bowel movement and movement Context: recent surgery/procedure Associated symptoms: nausea and constipation Related Data Previous Rx's Medication Instructions Recorded acetaminophen [Tylenol] 650 mg PO QID PRN #60 cap 02/29/20 docusate sodium [Colace] 100 mg PO BID #40 cap 02/29/20 ibuprofen 800 mg PO Q6H PRN #90 tab 02/29/20 oxycodone 5 mg PO Q6H PRN #50 tab 02/29/20 Allergies Allergy/AdvReac Type Severity Reaction Status Date / Time No Known Drug Allergies Allergy Verified 02/29/20 00:12 Review of Systems Constitutional Constitutional: Denies chills, Denies fatigue, Denies fever(s), Denies frequent falls, Denies lethargy and Denies weakness Eyes Eyes: Denies change in vision, Denies eye discharge, Denies irritation and Arsenio es loss of vision ENT Ears, Nose, Mouth, and Throat: Denies change in voice, Denies dizziness, Denies neck pain, Denies sore throat and Denies throat swelling Cardiovascular Cardiovascular: Denies chest pain, Denies irregular heart rhythm, Denies lightheadedness, Denies palpitations, Denies dyspnea, Denies dyspnea on exertion and Denies orthopnea Respiratory Respiratory: Denies cough, Denies dyspnea, Denies dyspnea on exertion and Denies wheezing Gastrointestinal Gastrointestinal: Reports abdominal pain, Reports bloating, Denies change in bowel habits, Reports change in stool character, Reports constipation, Denies diarrhea, Reports nausea and Denies vomiting Genitourinary Genitourinary: Denies hematuria, Denies flank pain, Denies urinary incontinence and Denies urinary urgency Musculoskeletal Musculoskeletal: Denies back pain, Denies muscle weakness, Denies neck pain, Denies numbness and Denies tingling Integumentary/Breasts Skin/Breast: Denies pruritus, Denies erythema, Denies rash and Denies wounds Neurologic Neurologic: Denies behavioral changes, Denies confusion, Denies dizziness, Denies frequent falls, Denies loss of vision, Denies numbness, Denies tingling and Denies weakness Psychiatric Psychiatric: Denies anxiety, Denies behavioral changes, Denies confusion, Denies depression, Denies homicidal ideation and Denies suicidal ideation Endocrine Endocrine: Denies fatigue, Denies flushing and Denies palpitations Hematologic/Lymphatic Hematologic/Lymphatic: Denies easy bruising Allergic/Immunologic Allergic/Immunologic: Denies urticaria, Denies throat swelling and Denies wheezing Patient History Social History household members: none Smoking Status: Current every day smoker alcohol intake: current Smoking Status: Current every day smoker alcohol intake frequency: holidays/special occasions only Substance Use Type: does not use Exam Narrative Exam Narrative: GENERAL: [39] year old patient appears stated age. Well- nourished, well-developed patient, in mild distress. Obviously uncomfortable HEAD: Atraumatic. Normocephalic. EYES: Pupils equal round and reactive. Extraocular motions intact. No scleral icterus. No injection or drainage. ENT: Nose without bleeding, purulent drainage. Throat without erythema, tonsillar hypertrophy or exudate. Airway patent. NECK: Trachea midline. Non tender CARDIOVASCULAR: Regular rate and rhythm without murmurs, gallops, or rubs. RESPIRATORY: Clear to auscultation. Breath sounds equal bilaterally. No wheezes, rales, or rhonchi. GASTROINTESTINAL: Abdomen soft, tender in LLQ with noted bulging in region of previous inguinal hernia. No bowel sounds noted. Very tender to palp in this region. Incision clean/dry/intact. EXTREMITIES: No edema or joint tenderness. BACK: Nontender without deformity or crepitance. No flank tenderness. NEURO: AOx3. SKIN: No rash or erythema of visible areas Initial Vital Signs Initial Vital Signs: Vital Signs Temperature 97.6 F 03/08/20 02:36 Pulse Rate 71 03/08/20 02:36 Respiratory Rate 15 03/08/20 02:36 Blood Pressure 162/102 H 03/08/20 02:36 Pulse Oximetry 100 03/08/20 02:36 Course Orders Ordered: ED Orders 03/08/20 02:31 XR acute abdomen series Stat 03/08/20 02:45 Complete Blood Count AUTO DIFF Stat Comprehensive Metabolic Panel Stat Lactate (Lactic Acid) Stat 03/08/20 02:56 CT abdomen pelvis w con Stat Discontinued Medications Bisacodyl (Dulcolax) 10 mg AR NOW ONE Stop: 03/08/20 04:18 Last Admin: 03/08/20 04:26 Dose: 10 mg Documented by: ANNIE Sodium Chloride (Normal Saline 0.9%) 1,000 mls @ 1,000 mls/hr IV BOLUS ONE Stop: 03/08/20 03:30 Last Infusion: 03/08/20 04:27 Dose: 0 mls/hr Documented by: Admin: 03/08/20 02:58 Dose: 1,000 mls/hr Documented by: ANNIE Magnesium Hydroxide (Milk Of Magnesia) 30 ml PO NOW ONE Stop: 03/08/20 04:18 Last Admin: 03/08/20 04:26 Dose: 30 ml Documented by: ANNIE Consultations Consultation #1: Dr. Ordonez paged at 0330. He will wait on CT results, keep patient NPO and laying flat. Dr. Ordonez called back after CT resulted. Fluid is likely a small hematoma. No evidence of obstruction. Recommends use of Dulcolax suppository and milk of mag. Will see patient in office later at 0930. Vital Signs Vital signs: Vital Signs - 8 hr 03/08/20 02:36 Temperature 97.6 F Pulse Rate 71 Respiratory Rate 15 Blood Pressure 162/102 H Pulse Oximetry 100 MDM - Abdominal Pain Lab Data Result diagrams: 03/08/20 02:45 03/08/20 02:45 Labs: Lab Results 03/08/20 03/08/20 03/08/20 Range/Units 02:45 02:45 02:45 WBC 5.7 (4.5-11.0) X10^3/uL RBC 4.86 (4.5-5.9) X10^6/uL Hgb 13.6 (13.5-17.5) g/dL Hct 39.6 L (41-53) % MCV 81.4 (80-100) fL MCH 28.1 (26-34) PG MCHC 34.5 (30-36) % RDW 12.5 (11.6-14.8) % Plt Count 322 (150-400) X10^3/uL Neut % (Auto) 58.5 (50-75) % Lymph % (Auto) 25.4 (25-40) % [place] % (Auto) 12.1 (3-14) % Eos % (Auto) 3.2 (2-4) % Baso % (Auto) 0.8 (0-2) % Neut # (Auto) 3300 (3681-3474) /uL Lymph # (Auto) 1400 (4015-7519) /uL [place] # (Auto) 700 (0-900) /uL Eos # (Auto) 200 (0-450) /uL Baso # (Auto) 0 (0-100) /uL Sodium 142 (137-145) mmol/L Potassium 4.1 (3.4-5.1) mmol/L Chloride 103 (98-107) mmol/L Carbon Dioxide 30 (22-32) mmol/L BUN 22 H (9-20) mg/dL Creatinine 1.08 (0.66-1.25) mg/dL Estimated GFR > 60.0 (>60) mL/min BUN/Creatinine Ratio 20.4 (6-22) Glucose 110 H (70-100) mg/dL Lactate 0.7 (0.7-2.1) mmol/L Calcium 9.9 (8.4-10.2) mg/dL Total Bilirubin 0.7 (0.2-1.3) mg/dL AST 26 (17-59) IU/L ALT 15 (<50) IU/L Alkaline Phosphatase 53 (38-126) U/L Total Protein 8.6 H (6.3-8.2) g/dL Albumin 4.6 (3.5-5.0) g/dL Globulin 4.0 (1.7-4.1) g/dL Albumin/Globulin Ratio 1.2 (1.0-2.8) Imaging Data CT scan - abdomen/pelvis: Radiologist's Impression: No obstruction or recurrence of hernia. Small fluid collection near surgical site. Discharge Plan Departure Patient Disposition: Home Clinical Impression: Constipation Qualifiers: Constipation type: drug induced constipation Qualified Code(s): K59.03 - Drug induced constipation Instructions: DI for Constipation Activity Restrictions/Additional Instructions: *You have been diagnosed with [constipation secondary to surgery and pain medications. Fluid collection near surgical site is likely a small hematoma] *What to do: *Continue to take medications as directed *Follow up with Dr. Ordonez at the [facility] office today at 0915 *Return to ER if you should have any new, worsening or concerning symptoms *You have been diagnosed with [ abdominal pain due to constipation ] *What to do: *Take over the counter medications as directed: 1. Metamucil - is a bulk forming laxative and adds fiber 2. Colace - softens your stool 3. Dulcolax suppository - stimulates your bowels *Drink plenty of water and eat foods high in fiber *Stay as active as you can as this helps move your bowels as well Prescriptions: No Action ibuprofen 200 mg tablet 800 mg PO Q6H PRN (Reason: pain) Qty: 90 RF: 0 docusate sodium [Colace] 100 mg capsule 100 mg PO BID Qty: 40 RF: 0 oxycodone 5 mg tablet 5 mg PO Q6H PRN (Reason: pain) Qty: 50 RF: 0 acetaminophen [Tylenol] 325 mg capsule 650 mg PO QID PRN (Reason: pain) Qty: 60 RF: 0 Referrals: Nahum Ordonez MD [Physician] -
[2020-03-08] MEDS: MAGNESIUM HYDROXIDE 30 ML UDC PO (04:26)
[2020-03-08] MEDS: BISACODYL 10 MG SUPP PR (04:26)
[2020-03-08 04:36] VITALS: BP 129/80; PULSE 78; RESP 16; TEMP 36.6; O2SAT 98
== END 2020-03-08 04:37 | disposition home or self-care (01) ==
PROVIDERS: Emergency Provider Emergency Medicine
DX: K59.03 Drug induced constipation (principal); R10.9 Unspecified abdominal pain; R11.0 Nausea
CPT/HCPCS: 36415; 74022; 74177; 80053; 83605; 85025; 96360; 99284; Q9967

== ENCOUNTER 2020-05-26 11:13 | Emergency (ER) | payer SELFPAY ==
[2020-04-12 15:16] VITALS: BMI 25.2
[2020-05-26 11:23] VITALS: BP 154/93; PULSE 87; RESP 14; TEMP 36.1; O2SAT 100; BMI 23.7
[2020-05-26 11:55] VITALS: BP 154/93; PULSE 87; RESP 12; O2SAT 99
--- NOTE | 2020-05-26 12:15 | ED_ITS ---
HPI - Dental/Oral <AILEEN Lewis - Last Filed: 05/26/20 12:27> General Chief complaint: Abdominal Pain Stated complaint: hernia,infected tooth Time Seen by Provider: 05/26/20 11:22 Source: patient Mode of arrival: Ambulatory Limitations: no limitations History of Present Illness HPI Narrative: This is a 39-year-old male, smoker, who had left inguinal hernia repair [address] Contreras and history of hepatitis-C, previous drug use presents to ED with chief complain of left inguinal pain since the surgery and high riding testicle and left upper to pain for 5 days. Patient denies drainage from the to, fever, chills, nausea or vomiting. Patient reports no difficulty with urination but at times he has to push to urinate. Patient already had follow-up appointment with Dr. Contreras and was told that it is normal healing and in may take up to couple of months for pain to resolved. The discussed during last appointment for urology referral but he has not received a phone call from urology clinic. Patient reports right groin slight swelling but denies fever warmth, redness, drainage. Patient reports has good appetite. Patient does not have primary care physician or dentist arranged at this time. MD Complaint: tooth pain Location: Tooth # (13) Related Data Previous Rx's Medication Instructions Recorded acetaminophen [Tylenol] 650 mg PO QID PRN #60 cap 02/29/20 docusate sodium [Colace] 100 mg PO BID #40 cap 02/29/20 ibuprofen 800 mg PO Q6H PRN #90 tab 02/29/20 oxycodone 5 mg tablet 5 mg PO Q6H PRN #50 tab 03/15/20 amoxicillin-pot clavulanate 1 tab PO BID 7 Days #14 tab 05/26/20 [Augmentin] Allergies Allergy/AdvReac Type Severity Reaction Status Date / Time No Known Drug Allergies Allergy Verified 05/26/20 11:22 Review of Systems <AILEEN Lewis - Last Filed: 05/26/20 12:27> Review of Systems Narrative: General: Denies fever, chills, fatigue, malaise, sweats. HEENT: See HPI Respiratory: Denies dyspnea, cough, wheezing, hemoptysis, sputum. Cardiovascular: Denies chest pain, palpitations, orthopnea, edema. Gastrointestinal: See HPI : Denies dysuria, frequency, incontinence, hematuria, urinary retention. Musculoskeletal: Denies weakness, joint pain or bony pain. Skin: Denies rash, skin lesions, or other. Neurologic: Denies weakness, headache, numbness, change in speech, confusion, seizures, incoordination. Psychiatric: No concerning psychosocial issues. 12-point review of systems is negative except for those stated above. Patient History <AILEEN Lewis - Last Filed: 05/26/20 12:27> Surgical History Hx of tonsillectomy (Acute) Social History household members: none Smoking Status: Current every day smoker alcohol intake: current Smoking Status: Current every day smoker alcohol intake frequency: holidays/special occasions only Substance Use Type: does not use Exam <AILEEN Lewis - Last Filed: 05/26/20 12:27> Narrative Exam Narrative: General appearance: well developed, well nourished, in no acute distress. Head: normocephalic, atraumatic, no scalp lesions, non-tender. ENT: Hearing grossly intact. Nose without bleeding, purulent discharge, septal hematoma or deviation. Turbinate without erythema or swelling. Facial sinuses nontender to palpate. Mucous membrane moist, no mucosal lesion. Throat without erythema, tonsillar hypertrophy or exudate. Uvula in midline, airway patent. around #13 tooth, very mild redness, no fractured/cracked tooth or drainage visualized. Tender to tap on the affected tooth. Neck/Thyroid: neck supple, full range of motion, no visible masses or meningeal signs. No JVD, non-tender without lymphadenopathy. Skin: no suspicious rashes, lesions over visible areas. Warm and dry and appropriate color for ethnicity. Heart: no clubbing, no cyanosis, no edema. S1 and S2 normal. RRR w/o murmurs, clicks, or bruits. Lungs: Breathing even and unlabored. No stridor. No accessory muscles used. Able to speak in full sentences. Chest: normal shape and expansion. Abdomen: left groin healed surgical incision without warmth, significant redness. Moderate swelling below incision site. No obvious teste felt in left inguinal canal. non-obese, non-distended. Neurologic: alert and oriented. Cognitive exam, [employer] and PNS grossly intact on informal exam. Psych: good eye contact, normal affect. Initial Vital Signs Initial Vital Signs: Vital Signs Temperature 97.0 F L 05/26/20 11:23 Pulse Rate 87 05/26/20 11:23 Respiratory Rate 14 05/26/20 11:23 Blood Pressure 154/93 H 05/26/20 11:23 Pulse Oximetry 100 05/26/20 11:23 <Michael Laguerre MD - Last Filed: 05/27/20 08:27> Initial Vital Signs Initial Vital Signs: Vital Signs Temperature 97.0 F L 05/26/20 11:23 Pulse Rate 87 05/26/20 11:23 Respiratory Rate 14 05/26/20 11:23 Blood Pressure 154/93 H 05/26/20 11:23 Pulse Oximetry 100 05/26/20 11:23 Scores <AILEEN Lewis - Last Filed: 05/26/20 12:27> G[place] coma scale eye opening: Spontaneous [place] coma scale verbal response: Orientated [place] coma scale motor response: Obey commands [place] coma scale total score: 15 Course <AILEEN Lewis - Last Filed: 05/26/20 12:27> Vital Signs Vital signs: Vital Signs - 8 hr 05/26/20 11:23 05/26/20 11:55 Temperature 97.0 F L Pulse Rate 87 87 Respiratory Rate 14 12 Blood Pressure 154/93 H 154/93 H Pulse Oximetry 100 99 <Michael Laguerre MD - Last Filed: 05/27/20 08:27> Vital Signs Vital signs: Vital Signs - 8 hr 05/26/20 11:23 05/26/20 11:55 Temperature 97.0 F L Pulse Rate 87 87 Respiratory Rate 14 12 Blood Pressure 154/93 H 154/93 H Pulse Oximetry 100 99 MDM - Dental/Oral <AILEEN Lewis - Last Filed: 05/26/20 12:27> Differential Diagnosis Differential diagnosis: Likely gingival abscess, dental caries, toothache, dental abscess and other (s/p inguinal hernia repair and pain) Medical Records Attestation: I reviewed the patient's medical records. [facility] Narrative Medical decision making narrative: This is a 39-year-old male who presents to ED with ongoing left inguinal hernia repair site pain and left upper #13 pain for last 5 days. Patient does not appears to be toxic. Patient is afebrile with normal heart rate and respiration. Patient advised to follow-up with urologist as discussed with Dr. Contreras during last follow up appointment after inguinal hernia repair for high riding testes. Patient has been taking ibuprofen 800 mg twice a day and advised to take 400-800 mg 3 to 4 times a day as needed for pain. 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 Patient discharged to home with Augmentin twice a day for 7 day course preliminary treatment for dental infection and advised follow-up with dentist. Return precautions were discussed with patient and work note for 1 day provided. Patient verbalized under standing and agreement with the treatment plan. Discharge Plan Departure Patient Disposition: Home Clinical Impression: Pain, dental Inguinal pain Qualifiers: Laterality: left Qualified Code(s): R10.32 - Left lower quadrant pain Discharge Date/Time: 05/26/20 12:16 Instructions: DI for Hernia Repair, DI for Dental Pain Activity Restrictions/Additional Instructions: You have been diagnosed with [left upper dental pain, left groin pain with status post inguinal hernia repair about 3 months ago and healing.]. What to do: *Take your medications as directed. Please start taking Augmentin twice a day for next 7 days preliminary treatment for dental infection. Augmentin has been transmitted to [facility]. No obvious signs of infection at this time. You can take [id number] ibuprofen 400-800 mg up to 3 to 4 times a day as needed for pain with food to decrease GI irritation. You can take [id number] Tylenol 650 mg up to 4 times a day as needed for pain unless If you were told by hepatitis to avoid Tylenol. You could use cool pack on affected site for swelling and pain. *Follow up with your primary care provider in 2-3 days, call for an appointment. Please follow-up with dentist for an evaluation. Let them know you were seen in the ED and that we asked you to be seen in follow up. As discussed with Dr. Contreras, follow up with urologist as needed. *Return to ED if you have any new, worsening, or concerning symptoms, such as [fever, chills, nausea or vomiting, chest pain, breathing difficulty, unable to tolerate fluids, redness/swelling/warmth spreading to her face or any acute concerns]. Prescriptions: New amoxicillin-pot clavulanate [Augmentin] 875-125 mg tablet 1 tab PO BID 7 Days Qty: 14 RF: 0 No Action oxycodone 5 mg tablet 5 mg PO Q6H PRN (Reason: pain) Qty: 50 RF: 0 ibuprofen 200 mg tablet 800 mg PO Q6H PRN (Reason: pain) Qty: 90 RF: 0 docusate sodium [Colace] 100 mg capsule 100 mg PO BID Qty: 40 RF: 0 acetaminophen [Tylenol] 325 mg capsule 650 mg PO QID PRN (Reason: pain) Qty: 60 RF: 0 Referrals: [facility] [Outside] Judy Parsons MD [Physician] -
== END 2020-05-26 12:16 | disposition home or self-care (01) ==
PROVIDERS: Emergency Provider Nurse Practitioner Family
DX: R10.32 Left lower quadrant pain (principal); K08.89 Other specified disorders of teeth and supporting structures
CPT/HCPCS: 99281